=== PATIENT | female | born 1995 | race Caucasian/White ===

== ENCOUNTER 2017-02-05 18:38 | Inpatient (IN) | payer OTHER ==
[~2017-02-05] VITALS: Ht 170.2 cm; Wt 83.5 kg
--- NOTE | 2017-02-05 18:50 | NUR ---
PT ARRIVED WITH C/O CONTRACTIONS THAT STARTED GETTING REALLY STRONG AT 1630. PT RATES PAIN 5/10 IN LOWER BACK. PT HAS FRIEND AT SIDE. PT NEEDING COACHING TO BREATH THROUGH CONTRACTIONS. CONTRACTIONS PALPATE MODERATE. PT STATES CONRACTIONS ARE EVERY 4-10 MINUTES. PT STATES IS HEPATITIS C POSITIVE, ADMITS TO DAILY OPIATE IV DRUG USE. LAST IV USE WAS MORPHINE THIS AFTERNOON. PT STATES HAS BEEN TRYING TO GET INTO [facility] AND HAS BEEN IN CONTACT WITH THEM. PT WAS GOING TO GO TO REHAB TODAY, BUT THEN WAS IN LABOR. PT STATES HAD NO CARE BECAUSE WAS HAVING ISSUES GETTING INTO DOCTOR D/T MEDICAID ISSUES. PER PT LAST MENSTRUAL WAS MIDDLE OF APRIL.
[2017-02-05 19:07] LABS: URINE BILIRUBIN - DIPSTICK NEGATIVE (NEGATIVE); URINE BLOOD DIPSTICK NEGATIVE (NEGATIVE); URINE CLARITY CLEAR; URINE COLOR YELLOW; URINE GLUCOSE - DIPSTICK NEGATIVE (NEGATIVE); URINE KETONE NEGATIVE (NEGATIVE); URINE LEUK ESTERASE NEGATIVE (NEGATIVE); URINE NITRITE - DIPSTICK NEGATIVE (Negative); URINE PH 6.5 (4.5-8.0); URINE PROTEIN - DIPSTICK NEGATIVE (NEG-TRACE); URINE SPECIFIC GRAVITY 1.025; URINE UROBILINOGEN - DIPSTICK 0.2 E.U./dL (0.2)
[2017-02-05 19:12] LABS: BARBITURATES NEGATIVE (NEGATIVE); COCAINE NEGATIVE (NEGATIVE); METHADONE NEGATIVE (NEGATIVE); TETRAHYDROCANNABIONOL NEGATIVE (NEGATIVE); TRICYLIC ANTIDEPRESSANTS NEGATIVE (NEGATIVE)
[2017-02-05 19:13] LABS: OXCYCODONE POSITIVE (NEGATIVE)
[2017-02-05 19:26] VITALS: BP 128/71
--- NOTE | 2017-02-05 19:35 | NUR ---
SWABS COLLECTED VIA SPECULUM. SVE PERFORMED BBOW AT 1926. DR. BUSTOS NOTIFIED OF PT SVE, PAIN, CONTRACTIONS PATTERN, NO CARE AND DRUGS USE. ORDERS RECEIVED AND DR. GEIGER STATES WILL BE IN AFTER WE START ADMISSION TO SEE PT.
--- NOTE | 2017-02-05 21:08 | NUR ---
PT RESTING IN BED REQUESTING TO USE RESTROOM. EFM DETACHED. PT ASSISTED TO RESTROOM. VOIDED 500ML.CLEAR WITH NORMAL SHOW. SIGNIFICANT OTHER AT THE BEDSIDE. IV FLUID LR INFUSING. PT ASSISTED BACK TO BED.EFM ATTACHED.TOCO ADJUSTED. WILL CONTINUE TO MONITOR.
--- NOTE | 2017-02-05 21:38 | NUR ---
[facility] CONTACTED ABOUT PUTTING ORDERS INTO SYSTEM, SPOKE WITH MITRA. PER MITRA THE PHARMACIST WILL VERIFY ORDER AND ENTER.
--- NOTE | 2017-02-05 22:00 | NUR ---
PT REQUESTING SOMETHING FOR PAIN AND NEEDING COACHING TO BREATH THROUGH CONTRACTIONS. SVE PERFORMED CHARTED. PT OOB TO AMBULATE TO ROOM 1. FRIEND AT SIDE. PT STOPPING IN HALLWAY WITH CONTRACTIONS. RN AT SIDE.
--- NOTE | 2017-02-05 22:04 | NUR ---
PT MOVED TO BR 1 AT 22:04.
[2017-02-05 22:30] VITALS: BP 142/79
--- NOTE | 2017-02-05 22:30 | NUR ---
BRP-PT VOIDED 300ML. EFM REATTACHED AND MONITORING. ACCELS PRESENT. VARIABLE NOTED WITH RAPID RETURN TO BASELINE. NUBAIN ADMINISTERED FOR PAIN OF 10/10 IN ABDOMEN AND LOWER BACK. SVE DONE BY MINDY HONG RN-7CM/90%/0 STATION. PT ASSISTED TO LEFT SIDE POST VARIABLE TO INCREASE OXYGENATION. EFM ADJ CONTINUOUSLY DUE TO PT MOVEMENT.FAMILY AT THE BEDSIDE.
[2017-02-05 23:00] VITALS: BP 135/83
--- NOTE | 2017-02-05 23:00 | NUR ---
CHANGE IN FHR FROM 125/130 TO 150. CONTRACTIONS PALPATED MDERATE/STRONG. PT ASSISTED TO RIGHT TILT THEN RIGHT SIDE FOR BETTER OXYGENATION. SVE DONE BY SANDRA PROCTOR PAIN OF 7/10 NOTED IN LOWER BACK AND ABDOMEN. PT BREATHING AND REPOSITIONING FOR COMFORT.
[2017-02-05 23:27] LABS: HEMATOCRIT 34.8 % (37.0-47.0); HEMOGLOBIN 11.4 g/dl (12.0-16.0); IMMATURE GRANULOCYTES 0.4 % (0.0-1.0); MEAN CELL VOLUME 82.9 fL CALC (80.0-100.0); MEAN CORPUSCULAR HGB 27.1 pG CALC (26.0-32.0); MEAN CORPUSCULAR HGB CONC 32.8 g/L CALC (32.0-36.0); NEUT# 6.28 thou/uL (2.00-7.15); RED BLOOD COUNT 4.2 mill/uL (4.20-5.60); RED CELL DISTRI WIDTH 15.3 % (11.5-15.5)
[2017-02-05] MEDS ORDERED: PRENATA3 PO (23:30)
[2017-02-05 23:37] LABS: ALBUMIN 3.3 g/dL (3.2-5.0); ALKALINE PHOSPHATASE 178 u/l (38-126); ANION GAP 12 (6-22 (CALC)); BILIRUBIN, TOTAL 0.2 mg/dL (0.0-1.4); BUN 9 mg/dL (7-17); BUN/CREATININE RATIO 16 (12-20 (CALC)); CALCIUM 9.4 mg/dL (8.4-10.2); CARBON DIOXIDE 30 mmol/l (22-30); CHLORIDE 100 mmol/l (95-108); CREATININE 0.6 mg/dL (0.5-1.0); GFR > 60 ML/MIN (>=60 (CALC)); GFR FOR AFR.AMER. > 60 ML/MIN (>=60 (CALC)); GLUCOSE 72 mg/dL (65-105); POTASSIUM 4.4 mmol/l (3.5-5.1); SGOT/AST 28 u/l (14-36); SGPT/ALT 29 u/l (9-52); SODIUM 137 mmol/l (137-146); TOTAL PROTEIN 6.8 g/dL (6.3-8.2)
[2017-02-05 23:43] VITALS: BP 120/73
[2017-02-05 23:46] VITALS: BP 131/82
--- NOTE | 2017-02-05 23:46 | NUR ---
EFM MONITORING.VARIABLE NOTE WITH RAPID RETURN TO BASELINE. PT REPOSITIONED TO LEFT SIDE. 500 CC LR BOLUS INITIATED PER MD. VITAL SIGNS ASSESSED AND STABLE. TEMP 96.1 NOTED MD. ON UNIT IN ROOM AND AWARE. SVE DONE BY DR. GEIGER 9-10 CM/RIM. EFM CONTINUOUSLY ADJUSTED. 23:23 RIM PRESENT PER MD. AROM-CLEAR, NO ODOR PRESENT. PT PREPARING TO PUSH. 23:40 NON-REBREATHER INITIATED FOR PT SOB. 23:43 VIABLE FEMALE BORN-, PITOCIN 300 CC BOLUS INITIATED. 23:46 [facility]AC[facility] DELIVERED INTACT.
[2017-02-05 23:56] VITALS: BP 136/71
[2017-02-06 00:05] VITALS: BP 119/74
[2017-02-06 00:15] VITALS: BP 136/77
[2017-02-06 01:17] VITALS: BP 105/65
--- NOTE | 2017-02-06 01:17 | NUR ---
PT ASSISTED WITH PERICARE. QUARTER SIZE CLOT PRESENT. FUNDUS FIRM AT UMBILICUS WITH LIGHT LOCHIA RED IN COLOR NOTED. AVE-SPRAY AND WITCH SARA PADS IN USE FOR PERINEUM DISCOMFORT.PT AMBULATED TO ROOM. VITAL SIGNS ASSESSED AND STABLE. FRESH FLUIDS AND APPLE JUICE PROVIDED. MOTRIN ADMINISTERED FOR ABDOMINAL AND PERINEUM DISCOMFORT-PERINEUM INTACT. PT ORIENTED TO NEW ROOM. QUESTIONS AND CONCERNS ADDRESSED. PT EDUCATED ON FUNDAL MASSAGE AND IMPORTANCE OF EMPTYING BLADDER EVERY 2-3 HOURS OR NEEDED. NO ADDITIONAL NEEDS AT THIS TIME.
[2017-02-06 02:35] VITALS: BP 106/63
--- NOTE | 2017-02-06 02:35 | NUR ---
PT SLEEPING IN BED. SKIN WARM AND CLAMMY. PT SHIVERING AND GROGGY. VITALS CHARTED AND WNL. POC REVIEWED WITH PT. CALL LIGHT IN REACH. WILL CONTINUE TO MONITOR.
--- NOTE | 2017-02-06 02:35 | NUR ---
ASSESSMENT CHARTED. +1 B/L LOWER EXTREMITY EDEMA NOTED. BANDAGE NOTED ON RIGHT CALF. PT STATES SHE CUT HERSELF SHAVING. SMALL SCABS AND MULTIPLE BRUISES IN VARIOUS STAGES OF HEALING NOTED.
--- NOTE | 2017-02-06 05:22 | NUR ---
PT SLEEPING IN BED IN NO APPARENT DISTRESS. INFANT BROUGHT TO THE BEDSIDE. PT ASKED IF THE BABY WAS SLEEPING AND THEN SHE WENT BACK TO SLEEP. CBC DRAWN FROM LEFT AC USING #23 BUTTERFLY NEEDLE X1 ATTEMPT. PT TOLERATED WELL. DISCUSSED POC WITH PT. PT GROGGY AND RESPONDS TO NURSE WITH EYES CLOSED. PT DENIES NEEDS. CALL LIGHT IN REACH. PREPARING REPORT FOR ONCOMING SHIFT.
[2017-02-06 05:54] LABS: HEMOGLOBIN 10.9 g/dl (12.0-16.0); IMMATURE GRANULOCYTES 0.5 % (0.0-1.0); MEAN CELL VOLUME 80.9 fL CALC (80.0-100.0); MEAN CORPUSCULAR HGB 26.7 pG CALC (26.0-32.0); NEUT# 11.24 thou/uL (2.00-7.15); RED BLOOD COUNT 4.08 mill/uL (4.20-5.60); RED CELL DISTRI WIDTH 14.8 % (11.5-15.5)
--- NOTE | 2017-02-06 06:55 | NUR ---
REPORT OF PT STATUS RECEIVED FROM Emser BHATTI RN. PT ASLEEP AT THIS TIME. BEDSIDE REPORT GIVEN. PT DENIES PAIN OR DISCOMFORT.
--- NOTE | 2017-02-06 07:02 | NUR ---
DR. GEIGER NOTIFIED OF PT'S REPORTED RIGHT BUNDLE BRANCH BLOCK, HEART MURMUR, LEFT POSTERIOR FASICULAR BLOCK. ORDERS RECIEVED.
--- NOTE | 2017-02-06 07:14 | NUR ---
DR. GEIGER TO SEE PT. REPORTS HE DOES NOT HERE A HEART MURMUR. GERTRUDE ONOFRE HERE TO DO EKG.
--- NOTE | 2017-02-06 08:05 | NUR ---
DR. OTTO CALLS ABOUT CONSULT. PT STATUS GIVEN TO PHYSICIAN. NO NEW ORDERS RECEIVED.
--- NOTE | 2017-02-06 08:10 | NUR ---
GRANDPARENTS OF HERE TO SEE THE BABY. MOTHER HAS NOT ASKED TO SEE BABY SINCE SHE WAS BORN. ENCOURAGED TO WASH THEIR HANDS. TAKEN TO ROOM. ID BANDS CHECKED.
--- NOTE | 2017-02-06 09:08 | NUR ---
DR. OTTO HERE TO SEE PT. HEARS HEART MURMUR FAINTLY. PHYSICIAN STATES RIGHT BUNDLE BRANCH BLOCK IS AN OLD DX. HE RECOMMENDS PT F/U WITH OUTPATIENT HRIS DEVELOPER.
[2017-02-06 09:10] VITALS: BP 118/75
--- NOTE | 2017-02-06 10:25 | NUR ---
PT MEDICATED WITH MOTRIN FOR ABDOMINAL CRAMPING. SEE PAIN ASSESSMENT FOR DETAILS.
--- NOTE | 2017-02-06 11:55 | NUR ---
PTS LUNCH TRAY SITTING AT BEDSIDE. PT IS SLEEPING. BED IN LOW POSITION AND CALL LIGHT WITHIN REACH.
--- NOTE | 2017-02-06 12:30 | NUR ---
[facility] HERE TO VISIT WITH PATIENT.
--- NOTE | 2017-02-06 13:32 | NUR ---
PT SLEEPING. NURSE WAKES PT UP TO REMIND HER LUNCH IS HERE. PT NODS HEAD IN ACKNOWLEDGEMENT BUT FALLS BACK TO SLEEP. INFANT REMAINS IN NURSERY. UNABLE TO DO ANY TEACHING DUE TO PT LETHARGY.
--- NOTE | 2017-02-06 15:00 | NUR ---
SIGNIFICANT OTHER HERE TO SIGN CERTIFICATE. PT WILL BE DISCHARGED AFTER IS TRANSFERRED TO [facility] IN [place], [place]. DISCHARGE TEACHING COMPLETED. PT ASKS APPROPRIATE QUESTIONS AT THIS TIME. PT SEEMS INDIFFERENT ABOUT BABY AND PERSONAL CARE. ENCOURAGED TO FOLLOW UP WITH DR. GEIGER FOR CHECK AND CONTROL. SHE IS ENCOURAGED TO CALL HIS OFFICE FOR ANY COMPLAINTS OF FEVER, ABNORMAL DISCHARGE, PAIN, OR PASSING LARGE BLOOD CLOTS. PT VOICES UNDERSTANDING.
--- NOTE | 2017-02-06 16:10 | NUR ---
1600: TRANSPORT TEAM HERE TO TALK TO PARENTS ABOUT . 1610: PT TAKEN IN WHEELCHAIR TO HER VEHICLE ACCOMPANIED BY SIGNIFICANT OTHER. GAIT IS STEADY AND EVEN. DENIES DIZZINESS. STATES SHE IS A LITTLE TIRED. HAS NO QUESTIONS OR CONCERNS.
== END 2017-02-06 16:10 | disposition home or self-care (01) | DRG 774 ==
LOC: OBOP 18:38 → EDSTATUS 18:40 → OB 19:00 → OBOP 19:00 → OB 19:00 → OBOP 19:34 → OB 19:35
PROC: 10907ZC Drainage of Amniotic Fluid, Therapeutic from Products of Conception, Via Natural or Artificial Opening (ICD-10-PCS; principal; 2017-02-05)
PROC: 10D07Z6 Extraction of Products of Conception, Vacuum, Via Natural or Artificial Opening (ICD-10-PCS; 2017-02-05)
DX: O99.324 Drug use complicating childbirth (principal); O99.42 Diseases of the circulatory system complicating childbirth; D62 Acute posthemorrhagic anemia; F15.10 Other stimulant abuse, uncomplicated; F11.10 Opioid abuse, uncomplicated; O99.334 Smoking (tobacco) complicating childbirth; F17.210 Nicotine dependence, cigarettes, uncomplicated; O76 Abnormality in fetal heart rate and rhythm complicating labor and delivery; I45.10 Unspecified right bundle-branch block; R01.1 Cardiac murmur, unspecified; O90.81 Anemia of the puerperium; Z3A.40 40 weeks gestation of pregnancy; Z37.0 Single live birth
CPT/HCPCS: J2540

== ENCOUNTER 2022-10-05 19:44 | Emergency (ER) | payer OTHER, MEDICAID ==
[~2022-10-05] VITALS: Ht 170.2 cm; Wt 68.0 kg
[~2022-10-05 19:44] MED LIST: PRENATA3 PO
[2022-10-05 21:34] LABS: BASO% 0.2 % (0-3); EOS% 1.3 % (0-8); HEMATOCRIT 37.2 % (37.0-47.0); HEMOGLOBIN 12.3 g/dl (12.0-16.0); IMMATURE GRANULOCYTES 0.2 % (0.0-5.0); LYMPH% 21.7 % (15-41); MEAN CELL VOLUME 89.9 fL CALC (80.0-100.0); MEAN CORPUSCULAR HGB 29.7 pG CALC (26.0-32.0); MEAN CORPUSCULAR HGB CONC 33.1 g/dL CAL (32.0-36.0); MONO% 3.5 % (2-13); NEUT# 6.38 thou/uL (2.00-7.15); NEUT% 73.1 % (42-76); RED BLOOD COUNT 4.14 mill/uL (4.20-5.60); RED CELL DISTRI WIDTH 13.2 % (11.5-15.5)
[2022-10-05 21:54] LABS: ALBUMIN 4.3 g/dL (3.2-5.0); ALKALINE PHOSPHATASE 68 u/l (38-126); ANION GAP 10 (6-22 (CALC)); BILIRUBIN, TOTAL 0.3 mg/dL (0.0-1.4); BUN 12 mg/dL (7-17); BUN/CREATININE RATIO 17 (12-20 (CALC)); CARBON DIOXIDE 24 mmol/l (22-30); CHLORIDE 107 mmol/l (95-108); CREATININE 0.7 mg/dL (0.5-1.0); GFR FOR AFR.AMER. > 60 ML/MIN (>=60 (CALC)); GFR OTHER RACES > 60 ML/MIN (>=60 (CALC)); POTASSIUM 3.7 mmol/l (3.5-5.1); SGOT/AST 48 u/l (14-36); SODIUM 137 mmol/l (137-146); TOTAL PROTEIN 7.6 g/dL (6.3-8.2)
[2022-10-05 22:45] VITALS: BP 111/76
[2022-10-05 23:00] VITALS: BP 115/82
[2022-10-05 23:15] VITALS: BP 119/81
[2022-10-05 23:30] VITALS: BP 124/86
[2022-10-05 23:45] VITALS: BP 117/76
[2022-10-05] MEDS ORDERED: KEFLEX500 MG PO (23:50)
[2022-10-05] MEDS ORDERED: LORTAB 1010 MG PO (23:50)
[2022-10-06] VITALS: BP 119/72
[2022-10-06 00:30] VITALS: BP 114/73
[2022-10-06 00:45] VITALS: BP 110/80
[2022-10-06] MEDS ORDERED: KEFLEX500 MG PO (01:02)
[2022-10-06] MEDS ORDERED: LORTAB 1010 MG PO (01:02)
== END 2022-10-06 01:35 | disposition home or self-care (01) | DRG 605 ==
LOC: ED 19:44
PROVIDERS: Emergency Medicine
DX: S00.81XA Abrasion of other part of head, initial encounter (principal); V23.49XA Other motorcycle driver injured in collision with car, pick-up truck or van in traffic accident, initial encounter; S62.622A Displaced fracture of middle phalanx of right middle finger, initial encounter for closed fracture